=== PATIENT | male | born 1935 | race Two or more races ===

== ENCOUNTER 2020-02-16 05:40 | Day surgery (SDC) | payer OTHER | END 2020-02-16 09:50 | disposition home or self-care (01) | LOC: AMB-ENDOS 05:40 | PROVIDERS: ATTEND Surgery | DX: K63.5 Polyp of colon (principal); Z20.828 Contact with and (suspected) exposure to other viral communicable diseases; K64.8 Other hemorrhoids ==

== ENCOUNTER 2020-03-28 12:00 | Inpatient (IN) | payer OTHER ==
[~2020-03-28] VITALS: Ht 170.2 cm; Wt 75.7 kg
[2020-03-28] MEDS ORDERED: PRAVASTATIN SOD20 MG PO (12:50)
[2020-03-28] MEDS ORDERED: VERELAN240 MG PO (12:50)
[2020-03-28] MEDS ORDERED: VITAMIN C500 M6 PO (12:50)
[2020-03-28] MEDS ORDERED: PRILOSEC OTC20 MG PO (12:50)
[2020-03-28] MEDS ORDERED: CENTRUM MEN'S1 EACH PO (12:51)
== END 2020-04-14 14:19 | disposition home or self-care (01) | DRG 330 ==
LOC: O/R 04-04 12:00 → SURG 04-11 05:55 → O/R 04-11 05:55 → SURG 04-11 14:43
PROVIDERS: ADMIT Surgery; ATTEND Surgery
PROC: 07BC4ZX Excision of Pelvis Lymphatic, Percutaneous Endoscopic Approach, Diagnostic (ICD-10-PCS; 2020-04-11)
PROC: 0DTF4ZZ Resection of Right Large Intestine, Percutaneous Endoscopic Approach (ICD-10-PCS; principal; 2020-04-11 08:00)
DX: C18.2 Malignant neoplasm of ascending colon (principal); K40.30 Unilateral inguinal hernia, with obstruction, without gangrene, not specified as recurrent; I11.9 Hypertensive heart disease without heart failure; R59.0 Localized enlarged lymph nodes

== ENCOUNTER 2020-04-09 09:28 | Outpatient (CLI) | payer OTHER ==
[~2020-04-09 09:28] MED LIST: CENTRUM MEN'S1 EACH PO; PRAVASTATIN SOD20 MG PO; PRILOSEC OTC20 MG PO; VERELAN240 MG PO; VITAMIN C500 M6 PO
== END 2020-04-09 09:37 | disposition home or self-care (01) ==
LOC: LAB 09:28
PROVIDERS: ATTEND Colon & Rectal Surgery
DX: Z03.818 Encounter for observation for suspected exposure to other biological agents ruled out (principal)